=== PATIENT | female | born 1965 | race Caucasian/White ===

== ENCOUNTER 2018-12-28 14:04 | Inpatient (IN) ==
--- NOTE | 2018-12-28 15:56 | XR ---
EXAM DATE: 12/28/2018 3:49 PM EST AGE/SEX: 53 years / Female INDICATIONS: Dyspnea from abdominal distention. CLINICAL DATA: This is the patient's initial encounter. Patient reports that signs and symptoms have been present for 2 days and indicates a pain score of 10/10. MEDICAL/SURGICAL HISTORY: None. None. COMPARISON: [facility], CT ABDOMEN & PELVIS W CONTRAST, 12/17/2018. . FINDINGS: A single AP view of the chest demonstrates right basilar infiltrate. Heart normal in size. Retrocardi ac density The cardiomediastinal contours are unremarkable. Osseous structures are intact. CONCLUSION: 1. Right basilar atelectasis/infiltrate. 2. Retrocardiac density likely hiatal hernia. Electronically signed by: Tanner Bates MD Board Certified Radiologist 12/28/2018 3:54 PM EST
[2018-12-28 16:22] LABS: Baso # (Auto) 0.1 th/mm3 (0.0-0.2); Eos # (Auto) 0.1 th/mm3 (0.0-0.4); Eos % (Auto) 0.6 % (0.0-4.0); Hematocrit 28.9 % (35.0-46.0); Hemoglobin 9.8 gm/dL (11.6-15.3); Lymph # (Auto) 1.5 th/mm3 (1.0-4.8); Lymph % (Auto) 11.4 % (9.0-44.0); Mean Corpuscular Volume 108.8 fL (80.0-100.0); Mono % (Auto) 7.6 % (0.0-8.0); Neut # (Auto) 10.3 th/mm3 (1.8-7.7); Neut % (Auto) 79.4 % (16.0-70.0); Platelet Count 209 th/mm3 (150-450); Red Blood Count 2.65 mil/mm3 (4.00-5.30); Red Cell Distribution Width 13.7 % (11.6-17.2)
--- NOTE | 2018-12-28 16:24 | ED ---
HPI General Chief complaint: Recheck/Abnormal Lab/Rx Stated complaint: leg/abd complaint Time Seen by Provider: 12/28/18 15:11 Source: patient Mode of arrival: ambulatory Limitations: no limitations History of Present Illness HPI narrative: Patient is a 53-year-old female, past medical history significant for alcohol abuse and liver disease, admitted to the hospital earlier this month and discharged approximately 2-3 weeks ago. She states that since then she has had approximately a 30 pound weight gain with increasing abdominal distention and bilateral lower extremity edema. She states that her abdomen and legs have become so distended that they are causing her pain and she is constantly itching them. She has also had a cough and shortness of breath when she lies flat. No chest pain. No fever nor chills. She went to her primary care doctor's (Dr Bowman) office where she was seen by a nurse practitioner and sent to the emergency department. Onset (ago): day(s) Location: abdomen and lower extremity Radiation: non-radiation Severity: moderate Quality: aching Pain Consistency: constant Relieving factors: none Exacerbating factors: none Associated symptoms: Reports shortness of breath Treatments prior to arrival: Reports none Related Data Home Medications Medication Instructions Recorded Confirmed omeprazole magnesium [Prilosec OTC] 20 mg PO DAILY 12/17/18 12/28/18 Previous Rx's Medication Instructions Recorded folic acid 1 mg PO DAILY 15 Days #15 tab 12/21/18 melatonin 5 mg PO HS PRN #30 tab 12/21/18 thiamine HCl (vitamin B1) 100 mg PO BID 15 Days #30 tab 12/21/18 Allergies Allergy/AdvReac Type Severity Reaction Status Date / Time Opioids - Morphine Analogues AdvReac Vomiting Verified 12/17/18 09:29 Review of Systems ROS: all other systems reviewed are negative [facility] Medical History Medical History Alcohol abuse (Acute) Jaundice (Acute) Surgical History Surgical History Hx of cholecystectomy (Acute) Hx of hand surgery (Acute) Family History Family History Other Osteoarthritis Social History Social History Substance History: No History of Abuse Second Hand Smoke Exposure: No Smoking Status: Never smoker How Often Do You Have a Drink Containing Alcohol: 4 or more times a week Immunization History Tetanus Immunization: Unsure Exam Narrative Exam Narrative: GENERAL: Chronically ill-appearing female in no acute respiratory distress SKIN: Focused skin assessment warm/dry. HEAD: Atraumatic. Normocephalic. EYES: Pupils equal and round. Jaundiced. No injection or drainage. ENT: No nasal bleeding or discharge. Mucous membranes pink and moist. NECK: Trachea midline. No JVD. CARDIOVASCULAR: Regular rate and rhythm. No murmur appreciated. Intact and equal peripheral pulses. RESPIRATORY: No accessory muscle use. Clear to auscultation. Breath sounds equal bilaterally. GASTROINTESTINAL: Abdomen soft, non-tender. Distended abdomen. Hepatic and splenic margins not palpable. MUSCULOSKELETAL: No obvious deformities. No clubbing. No cyanosis. 3+ bilateral lower extremity pitting edema. NEUROLOGICAL: Awake and alert. No obvious cranial nerve deficits. Motor grossly within normal limits. Normal speech. PSYCHIATRIC: Appropriate mood and affect; insight and judgment normal. Course Initial Documented Vital Signs Temperature 98.4 F 12/28/18 14:06 Pulse Rate 106 H 12/28/18 14:06 Respiratory Rate 28 H 12/28/18 14:06 Blood Pressure 119/84 12/28/18 14:06 Pulse Oximetry 98 12/28/18 14:06 Last Documented Vital Signs Temperature 98.4 F 12/28/18 14:06 Pulse Rate 96 H 12/28/18 17:00 Respiratory Rate 16 12/28/18 17:00 Blood Pressure 103/76 12/28/18 17:00 Pulse Oximetry 97 12/28/18 17:49 Medical Decision Making [facility] Narrative Medical decision making narrative: Patient is a 53-year-old female who presents with complaint of abdominal distention and bilateral lower extremity edema in addition to a cough. She is afebrile and hemodynamically stable. White blood cell count is slightly elevated and chest x-ray does show right lower lobe pneumonia as she was hospitalized in the last 3 months this is concerning for hospital associated infection. She has been given vancomycin, Zosyn, azithromycin to cover this after blood cultures were drawn. Labs otherwise reveal hyponatremia with a sodium of 119. 1 week ago her sodium was at 130. Her mental status is normal however. She has been admitted to Dr. yost, her primary care doctor, for further evaluation and management. Medical Screen Exam Complete: Yes Emergency Medical Condition: Yes Differential Diagnosis Differential Diagnosis: Differential diagnosis includes but is not limited to fluid overload, hepatorenal syndrome, heart failure. Medical Records Medical records reviewed: Yes I reviewed the patient's medical records. Lab Data Lab results reviewed: Yes I reviewed the patient's lab results. Result diagrams: 12/28/18 16:00 12/28/18 16:00 Lab Results 12/28/18 12/28/18 12/28/18 Range/Units 16:00 16:00 16:00 WBC 13.0 H (4.0-11.0) th/mm3 RBC 2.65 L (4.00-5.30) mil/mm3 Hgb 9.8 L (11.6-15.3) gm/dL Hct 28.9 L (35.0-46.0) % MCV 108.8 H (80.0-100.0) fL MCH 37.0 H (27.0-34.0) pg MCHC 34.0 (32.0-36.0) % RDW 13.7 (11.6-17.2) % Plt Count 209 D (150-450) th/mm3 MPV 7.0 (7.0-11.0) fL Neut % (Auto) 79.4 H (16.0-70.0) % Lymph % (Auto) 11.4 (9.0-44.0) % Pettis % (Auto) 7.6 (0.0-8.0) % Eos % (Auto) 0.6 (0.0-4.0) % Baso % (Auto) 1.0 (0.0-2.0) % Neut # (Auto) 10.3 H (1.8-7.7) th/mm3 Lymph # (Auto) 1.5 (1.0-4.8) th/mm3 Pettis # (Auto) 1.0 H (0.0-0.9) th/mm3 Eos # (Auto) 0.1 (0.0-0.4) th/mm3 Baso # (Auto) 0.1 (0.0-0.2) th/mm3 WBC Differential . Differential Comment Auto diff final PT 18.1 H (9.8-11.6) sec INR 1.8 Ratio Sodium 119 L* (136-145) meq/L Potassium 3.8 (3.5-5.1) meq/L Chloride 88 L (98-107) meq/L Carbon Dioxide 20.1 L (21.0-32.0) meq/L Anion Gap 11 (5-15) meq/L BUN 5 L (7-18) mg/dL Creatinine 0.59 (0.50-1.00) mg/dL Estimated GFR Greater than 89 (>89) mL/min Random Glucose 85 (74-106) mg/dL Calcium 7.9 L (8.5-10.1) mg/dL Total Bilirubin 10.5 H (0.2-1.0) mg/dL AST 114 H (15-37) U/L ALT 14 (10-53) U/L Alkaline Phosphatase 210 H (45-117) U/L Troponin I Less than 0.02 L (0.02-0.05) ng/mL B-Natriuretic Peptide (0-100) pg/mL Total Protein 7.7 (6.4-8.2) g/dL Albumin 1.9 L (3.4-5.0) g/dL 12/28/18 Range/Units 16:00 WBC (4.0-11.0) th/mm3 RBC (4.00-5.30) mil/mm3 Hgb (11.6-15.3) gm/dL Hct (35.0-46.0) % MCV (80.0-100.0) fL MCH (27.0-34.0) pg MCHC (32.0-36.0) % RDW (11.6-17.2) % Plt Count (150-450) th/mm3 MPV (7.0-11.0) fL Neut % (Auto) (16.0-70.0) % Lymph % (Auto) (9.0-44.0) % Pettis % (Auto) (0.0-8.0) % Eos % (Auto) (0.0-4.0) % Baso % (Auto) (0.0-2.0) % Neut # (Auto) (1.8-7.7) th/mm3 Lymph # (Auto) (1.0-4.8) th/mm3 Pettis # (Auto) (0.0-0.9) th/mm3 Eos # (Auto) (0.0-0.4) th/mm3 Baso # (Auto) (0.0-0.2) th/mm3 WBC Differential Differential Comment PT (9.8-11.6) sec INR Ratio Sodium (136-145) meq/L Potassium (3.5-5.1) meq/L Chloride (98-107) meq/L Carbon Dioxide (21.0-32.0) meq/L Anion Gap (5-15) meq/L BUN (7-18) mg/dL Creatinine (0.50-1.00) mg/dL Estimated GFR (>89) mL/min Random Glucose (74-106) mg/dL Calcium (8.5-10.1) mg/dL Total Bilirubin (0.2-1.0) mg/dL AST (15-37) U/L ALT (10-53) U/L Alkaline Phosphatase (45-117) U/L Troponin I (0.02-0.05) ng/mL B-Natriuretic Peptide 40 (0-100) pg/mL Total Protein (6.4-8.2) g/dL Albumin (3.4-5.0) g/dL Imaging Data Attestation: I personally reviewed and interpreted this imaging study as follows : Radiologist's impression: Chest X-Ray 12/28/18 15:24 CONCLUSION: 1. Right basilar atelectasis/infiltrate. 2. Retrocardiac density likely hiatal hernia. ECG Data EKG Prior to Arrival: No Attestation: I personally reviewed and interpreted this ECG as follows: (Sinus rhythm at a rate of 96 bpm. There is T wave inversion in lead III but no other ST or T wave changes.) Discharge Plan Discharge Disposition Patient Disposition: ED Admit(ED Internal Use Only) Discharge Condition Condition: Stable Discharge Order Discharge Orders: ED Use Only Admit Order (Routine); Ordered 12/28/18 Ordered By: Parris Keller Discharge Details Diagnosis: Hospital-acquired pneumonia, Acute hyponatremia Physicians Team ED Provider: Parris Keller Primary Care Provider: Pj Bowman Attending Provider: Pj Bowman Discharge Interventions Interventions: Vital Signs Last Done: 12/28/18 17:00 Status ED Status: Admitted Patient
[2018-12-28 16:27] LABS: INR 1.8 Ratio; Prothrombin Time 18.1 sec (9.8-11.6)
[2018-12-28] MEDS ORDERED: Azithromycin Inj 500 MG in Sodium Chlor 0.9% Inj 250 ML IV.SIG ONE (16:40)
[2018-12-28] MEDS ORDERED: Vancomycin Inj 1,500 MG in Sodium Chlor 0.9% Inj 500 ML IV.SIG ONE (16:40)
[2018-12-28] MEDS ORDERED: Piperacil/Tazo 4.5 GM Premix 4.5 GM/100 ML BAG IV.SIG SCH (16:45)
[2018-12-28 17:34] LABS: Alanine Aminotransferase 14 U/L (10-53); Albumin 1.9 g/dL (3.4-5.0); Alkaline Phosphatase 210 U/L (45-117); Anion Gap 11 meq/L (5-15); Aspartate Aminotransferase 114 U/L (15-37); Blood Urea Nitrogen 5 mg/dL (7-18); Calcium 7.9 mg/dL (8.5-10.1); Carbon Dioxide 20.1 meq/L (21.0-32.0); Chloride 88 meq/L (98-107); Glomerular Filtration Rate Greater Than 89 mL/min (>89); Glucose,Random 85 mg/dL (74-106); Potassium 3.8 meq/L (3.5-5.1); Total Protein 7.7 g/dL (6.4-8.2)
[2018-12-28 17:38] LABS: Sodium 119 meq/L (136-145)
[2018-12-28] MEDS ORDERED: Acetaminophen 325 MG Tablet PO PRN (20:07)
--- NOTE | 2018-12-28 21:12 | ECG ---
Date Performed: 12/28/2018 Time Performed: 16:13:48 PTAGE: 53 years EKG: Sinus rhythm NORMAL ECG NO PREVIOUS TRACING DOCTOR: Alfred Cuenca Interpretating Date/Time 12/28/2018 21:11:45
[2018-12-29 07:44] LABS: Baso # (Auto) 0.1 th/mm3 (0.0-0.2); Baso % (Auto) 1.2 % (0.0-2.0); Eos # (Auto) 0.2 th/mm3 (0.0-0.4); Eos % (Auto) 1.2 % (0.0-4.0); Hematocrit 27.9 % (35.0-46.0); Hemoglobin 9.7 gm/dL (11.6-15.3); Lymph # (Auto) 1.1 th/mm3 (1.0-4.8); Lymph % (Auto) 8.8 % (9.0-44.0); Mean Corpuscular HGB Conc 34.9 % (32.0-36.0); Mean Corpuscular Hemoglobin 37.5 pg (27.0-34.0); Mean Corpuscular Volume 107.6 fL (80.0-100.0); Mean Platelet Volume 7.1 fL (7.0-11.0); Mono # (Auto) 0.7 th/mm3 (0.0-0.9); Mono % (Auto) 5.8 % (0.0-8.0); Neut # (Auto) 10.4 th/mm3 (1.8-7.7); Platelet Count 213 th/mm3 (150-450); Red Cell Distribution Width 13.5 % (11.6-17.2); White Blood Count 12.6 th/mm3 (4.0-11.0)
[2018-12-29 08:00] LABS: Anion Gap 11 meq/L (5-15); Blood Urea Nitrogen 5 mg/dL (7-18); Calcium 7.8 mg/dL (8.5-10.1); Carbon Dioxide 19.4 meq/L (21.0-32.0); Chloride 92 meq/L (98-107); Glomerular Filtration Rate Greater Than 89 mL/min (>89); Glucose,Random 85 mg/dL (74-106); Potassium 3.5 meq/L (3.5-5.1)
[2018-12-29 08:07] LABS: Sodium 122 meq/L (136-145)
[2018-12-29] MEDS: Pantoprazole Sodium 20 MG DR Tablet PO SCH (09:21)
[2018-12-29] MEDS: Folic Acid 1 MG Tablet PO SCH (09:21)
--- NOTE | 2018-12-29 12:34 | MB ---
cc: Isai Page MD, Gerald R DO DATE: 12/29/2018 REQUESTING PHYSICIAN: Dr. Pj Bowman. REASON FOR CONSULTATION: Recent pneumonia. HISTORY OF PRESENT ILLNESS: Ms. Cage is a 53-year-old white female, who was recently discharged from this hospital. She tells me that she was diagnosed with cirrhosis related to the alcohol. The patient also had hyponatremia, which improved. The patient states that she has gained 20 pounds of weight since her discharge from the hospital about 10 days ago. She went to see Dr. Bowman, and was sent to the emergency room. She complains of increasing swelling in the belly, swelling in her legs. Sodium 122, potassium 3.5, chloride 92, CO2 of 19.4, BUN 5, creatinine 0.61. Chest x-ray showed she has a right basal atelectasis versus infiltrate, and has a retrocardiac shadow, likely hiatal hernia. PAST MEDICAL HISTORY: Significant for history of recently diagnosed hepatitis/cirrhosis. MEDICATIONS: She is currently taking albuterol and Atrovent nebulizer treatment, folic acid 1 mg a day, melatonin 5, Protonix 20 mg a day, thiamine 100 mg a day. ALLERGIES: SHE IS ALLERGIC TO MORPHINE. SOCIAL HISTORY: She worked as a nurse reviewer. Has no history of smoking, used to drink beer, which she quit. No drug abuse. She is , lives alone. No children. REVIEW OF SYSTEMS: She has gained 20 pounds of weight. Has mild shortness of breath and swelling in the legs. No DVT or pulmonary embolism. No bleeding from any site. PHYSICAL EXAMINATION: GENERAL: A moderate, well-nourished female, not in any acute distress. VITAL SIGNS: Blood pressure 101/60, heart rate 97, respirations 19, temperature 97.8. HEENT: Pupils are equal and reactive to light. She has icterus. NECK: Supple. JVD not raised. CHEST: She has good respiratory sounds bilaterally. No rales or rhonchi. CARDIOVASCULAR: S1, S2 normal. ABDOMEN: Distended, nontender. Bowel sounds are present. EXTREMITIES: 2+ pedal edema. IMPRESSION: 1. Anasarca. 2. Ascites. 3. Mild atelectasis. 4. Possible hepatitis/cirrhosis. 5. Hyponatremia. PLAN: I discussed with the patient. She does not have any signs or symptoms of pneumonia. No need for antibiotics. Encourage her to use incentive spirometry. She will need diuresis, GI evaluation, and possible paracentesis. She is stable on room air. Further treatment plan will depend on hospital course. Thank you, Dr. Bowman, for this consultation. Isai Page MD ADA/rh , 11:58 AM , 12:08 PM
--- NOTE | 2018-12-29 14:11 | P.HPIM ---
History of Present Illness Primary Care Physician: Pj Bowman DO History of Present Illness: This patient is a 53 y/o Female with an extensive hx of etoh abuse. She was recently diagnosed with alcoholic cirrhosis and treated for hypernatremia likely 2/2 fluid overload and then discharged with a na level of around 130. Patient followed up with Dr. Bowman who evaluated the patient in his clinic and sent her to the ER because of b/l lower ext edema and worsening abdominal distention. She says that she feels approximately 20lbs heavier than her last admission and was feeling uncomfortable. She denies any fevers or chills. She admits to abdominal discomfort but denies any pain or tenderness to palpation. In the ER her Na level was low around 119. Her last alcoholic drink was approximately two weeks ago. PMH ETOH cirrhosis Surg Hx Cholecystectomy Social Hx extensive etoh abuse hx, denies hx of tobacco or drug use. Fam Hx breast cancer in her aunt. Inpatient Certification Inpatient Certification: I certify that the inpatient services were ordered in accordance with Medicare regulations governing the order. This includes certification that hospital inpatient services are reasonable and necessary and in the case of services not specified as inpatient-only under 42 CFR 419.22(n), that they are appropriately provided as inpatient services in accordance to with the 2-midnight benchmark under 43 CFR 412.3(e) Estimated Total Length of Stay (Days): 5 Plans for Post Hospital Care: SNF Review of Systems Review of Systems: all other systems reviewed are negative [facility] Medical History Medical History Alcohol abuse (Acute) Jaundice (Acute) Surgical History Surgical History Hx of cholecystectomy (Acute) Hx of hand surgery (Acute) Family History Family History Other Osteoarthritis Social History Social History Substance History: No History of Abuse Second Hand Smoke Exposure: No Smoking Status: Never smoker How Often Do You Have a Drink Containing Alcohol: 4 or more times a week Immunization History Tetanus Immunization: Unsure Medications and Allergies Allergies Allergy/AdvReac Type Severity Reaction Status Date / Time Opioids - Morphine Analogues AdvReac Vomiting Verified 12/17/18 09:29 Home Medications Medication Instructions Recorded Confirmed Type omeprazole magnesium [Prilosec OTC] 20 mg PO DAILY 12/17/18 12/28/18 History Active Medications: Active Medications Acetaminophen (Tylenol) 650 mg PO Q4H PRN PRN Reason: Temp > 100.4 Albuterol (Duoneb Neb (Edith)) 1 ampul NEB QID NEB [facility] Last Admin: 12/29/18 12:04 Dose: 1 ampul Folic Acid (Folic Acid) 1 mg PO DAILY [facility] Last Admin: 12/29/18 09:21 Dose: 1 mg Melatonin (Melatonin) 5 mg PO HS PRN PRN Reason: Insomnia Pantoprazole Sodium (Protonix) 20 mg PO DAILY [facility] [place] Last Admin: 12/29/18 09:21 Dose: 20 mg Thiamine HCl (Vitamin B1) 100 mg PO BID [facility] [place] Last Admin: 12/29/18 09:21 Dose: 100 mg Physical Exam Vital signs: Vital Signs 12/28/18 14:06 12/28/18 15:13 12/28/18 15:24 Temperature 98.4 F Pulse Rate 106 H 95 H 70 Respiratory Rate 28 H 16 Blood Pressure 119/84 107/73 Pulse Oximetry 98 100 97 12/28/18 16:00 12/28/18 17:00 12/28/18 17:40 Temperature Pulse Rate 100 H 96 H Respiratory Rate 17 16 Blood Pressure 103/76 103/76 Pulse Oximetry 96 98 97 12/28/18 17:49 12/28/18 19:10 12/28/18 19:12 Temperature Pulse Rate 94 H Respiratory Rate Blood Pressure 104/75 Pulse Oximetry 97 97 97 12/28/18 20:01 12/28/18 21:21 12/28/18 21:37 Temperature 97.9 F Pulse Rate 68 93 H Respiratory Rate 16 20 Blood Pressure 102/65 95/68 L Pulse Oximetry 96 98 97 12/29/18 00:26 12/29/18 00:32 12/29/18 04:00 Temperature 98.3 F 98.1 F Pulse Rate 96 H 95 H 99 H Respiratory Rate 16 20 20 Blood Pressure 100/55 L 112/59 L Pulse Oximetry 98 97 95 12/29/18 08:00 12/29/18 08:40 12/29/18 12:00 Temperature 97.8 F 98.2 F Pulse Rate 97 H 101 H 101 H Respiratory Rate 19 18 18 Blood Pressure 101/67 100/60 Pulse Oximetry 96 97 12/29/18 12:04 Temperature Pulse Rate 99 H Respiratory Rate 18 Blood Pressure Pulse Oximetry Intake & Output 12/28/18 12/29/18 12/29/18 18:59 06:59 18:59 Intake Total 100 / 100 1066 / 1066 Balance 100 / 100 1066 / 1066 Weight 63.503 kg 64.8 kg Intake: IV 100 / 100 765 / 765 Azithromycin Inj 500 MG In NS 250 / 250 Inj 250 ML @ 250 mls/hr IV.SIG ONCE ONE Rx#:[id number] Zosyn 4.5 GM Premix 4.5 gm In 100 / 100 100 ml @ 200 mls/hr IV.SIG ONCE EDITH Rx#:[id number] Vancomycin Inj 1,500 MG In NS 515 / 515 Inj 500 ML @ 250 mls/hr IV.SIG ONCE ONE Rx#:[id number] Oral 301 / 301 Other: # Bowel Movements 2 Narrative: Patient appear jaundiced Alert and oriented x 3 Scleral icterus S1S2 CTA B/L Abd soft, mildly distended, no tenderness to palpation. Bowel sounds are present. 2-3+ pitting edema of b/l lower exts. Patient is ambulatory, no focal neuro deficits. Results Labs CBC & Chem 7: 12/29/18 06:30 12/29/18 06:30 Imaging Impressions Chest X-Ray 12/28/18 15:24 CONCLUSION: 1. Right basilar atelectasis/infiltrate. 2. Retrocardiac density likely hiatal hernia. Caprini VTE Risk Assessment Caprini VTE Risk Assessment: No/Low Risk (score <= 1) Caprini Risk Assessment Model: Point Value = 1 Point Value = 2 Point Value = 3 Point Value = 5 Age 41-60 Minor surgery BMI > 25 kg/m2 Swollen legs Varicose veins or History of unexplained or recurrent spontaneous Oral contraceptives or hormone replacement Sepsis (< 1 month) Serious lung disease, including pneumonia (< 1 month) Abnormal pulmonary function Acute myocardial infarction Congestive heart failure (< 1 month) History of inflammatory bowel disease Medical patient at bed rest Age 61-74 Arthroscopic surgery Major open surgery (> 45 min) Laparoscopic surgery (> 45 min) Malignancy Confined to bed (> 72 hours) Immobilizing plaster cast Central venous access Age >= 75 History of VTE Family history of VTE Factor V Leiden Prothrombin [id number] Lupus anticoagulant Anticardiolipin antibodies Elevated serum homocysteine Heparin-induced thrombocytopenia Other congenital or acquired thrombophilia Stroke (< 1 month) Elective arthroplasty Hip, pelvis, or leg fracture Acute spinal cord injury (< 1 month) Prophylaxis Regimen: Total Risk Factor Score Risk Level Prophylaxis Regimen 0-1 Low Early ambulation 2 Moderate Order ONE of the following: *Sequential Compression Device (SCD) *Heparin 5000 units SQ BID 3-4 Higher Order ONE of the following medications: *Heparin 5000 units SQ TID *Enoxaparin/Lovenox 40 mg SQ daily (WT < 150 kg, CrCl > 30 mL/min) *Enoxaparin/Lovenox 30 mg SQ daily (WT < 150 kg, CrCl > 10-29 mL/min) *Enoxaparin/Lovenox 30 mg SQ BID (WT < 150 kg, CrCl > 30 mL/min) AND/OR *Sequential Compression Device (SCD) 5 or more Highest Order ONE of the following medications: *Heparin 5000 units SQ TID (Preferred with Epidurals) *Enoxaparin/Lovenox 40 mg SQ daily (WT < 150 kg, CrCl > 30 mL/min) *Enoxaparin/Lovenox 30 mg SQ daily (WT < 150 kg, CrCl > 10-29 mL/min) *Enoxaparin/Lovenox 30 mg SQ BID (WT < 150 kg, CrCl > 30 mL/min) AND *Sequential Compression Device (SCD) Assessment and Plan Plan This patient is a 53 y/o Female with an extensive hx of etoh abuse. She was recently diagnosed with alcoholic cirrhosis and treated for hypernatremia likely 2/2 fluid overload and then discharged with a na level of around 130. Patient followed up with Dr. Bowman who evaluated the patient in his clinic and sent her to the ER because of b/l lower ext edema and worsening abdominal distention. She says that she feels approximately 20lbs heavier than her last admission and was feeling uncomfortable. She denies any fevers or chills. She admits to abdominal discomfort but denies any pain or tenderness to palpation. In the ER her Na level was low around 119. Her last alcoholic drink was approximately two weeks ago. 1. Acute hyponatremia likely 2/2 volume overload from ETOH cirrhosis Patient with a significant amount of edema of the lower exts and abd wall. I do not believe she needs an urgent paracentesis. We will start the patient on PO lasix. I will give a dose of IV lasix for today, and then continue the PO lasix tonight. I will be cautious with IV lasix to avoid hepato renal syndrome given her etoh cirrhosis hx. Strict ins/outs Follow up repeat Renal panel around 1700 and then tomorrow am. Na has improved form 119 to 122. We will monitor to not over correct her na level 2. Questionable infiltrate on CXR I do not believe the patient has a pna which was seen on cxr. No symptoms. Pulm note appreciated. Cont breathing txs as needed. No need to continue antibiotics. SCDs for DVT prophylaxis, encourage ambulation. Patient was ambulating on my examination.
[2018-12-29] MEDS: Furosemide 20 MG Tablet PO SCH (18:22)
[2018-12-29 18:29] LABS: Calcium 7.4 mg/dL (8.5-10.1); Carbon Dioxide 18.2 meq/L (21.0-32.0); Potassium 3.3 meq/L (3.5-5.1)
[2018-12-29 20:06] LABS: Albumin 1.8 g/dL (3.4-5.0); Calcium-Albumin Corrected 9.2 mg/dL (8.5-10.1)
[2018-12-29] MEDS: Melatonin 5 MG Tablet PO PRN (21:02)
[2018-12-30 08:41] LABS: Anion Gap 12 meq/L (5-15); Blood Urea Nitrogen 5 mg/dL (7-18); Calcium 7.7 mg/dL (8.5-10.1); Carbon Dioxide 20.5 meq/L (21.0-32.0); Chloride 96 meq/L (98-107); Glomerular Filtration Rate Greater Than 89 mL/min (>89); Glucose,Random 83 mg/dL (74-106); Potassium 3.6 meq/L (3.5-5.1); Sodium 128 meq/L (136-145)
--- NOTE | 2018-12-30 09:22 | P.PNIM ---
Subjective Interval history: Patient laying down in bed, starting to feel better. Edema improving. Physical Exam Vital signs: Vital Signs 12/29/18 12:00 12/29/18 12:04 12/29/18 15:52 Temperature 98.2 F Pulse Rate 101 H 99 H 109 H Respiratory Rate 18 18 18 Blood Pressure 100/60 Pulse Oximetry 97 12/29/18 16:00 12/29/18 18:21 12/29/18 20:00 Temperature 98.2 F 98.1 F Pulse Rate 112 H 101 H Respiratory Rate 19 17 Blood Pressure 110/79 103/63 99/61 L Pulse Oximetry 97 97 12/30/18 00:00 12/30/18 07:42 12/30/18 08:00 Temperature 97.6 F 98.5 F Pulse Rate 99 H 88 84 Respiratory Rate 17 16 16 Blood Pressure 101/65 88/54 L Pulse Oximetry 94 L 96 95 Intake & Output 12/29/18 12/30/18 12/30/18 18:59 06:59 18:59 Intake Total 480 / 480 Balance 480 / 480 Weight 64.1 kg Intake: Oral 480 / 480 Other: # Voids 3 Date of Last Bowel Movement 12/29/18 12/29/18 Narrative: Patient appear jaundiced Alert and oriented x 3 Scleral icterus S1S2 CTA B/L Abd soft, mildly distended, no tenderness to palpation. Bowel sounds are present. 2+ pitting edema of b/l lower exts. Improving. Patient is ambulatory, no focal neuro deficits. Results Labs CBC & Chem 7: 12/29/18 06:30 12/31/18 05:40 Labs: Microbiology 12/28/18 17:05 Blood - Peripheral Aerobic Blood Culture - Preliminary No growth in 1 day 12/28/18 17:05 Blood - Peripheral Anaerobic Blood Culture - Preliminary No growth in 1 day 12/28/18 16:50 Blood - Peripheral Aerobic Blood Culture - Preliminary No growth in 1 day 12/28/18 16:50 Blood - Peripheral Anaerobic Blood Culture - Preliminary No growth in 1 day Assessment and Plan Plan This patient is a 53 y/o Female with an extensive hx of etoh abuse. She was recently diagnosed with alcoholic cirrhosis and treated for hypernatremia likely 2/2 fluid overload and then discharged with a na level of around 130. Patient followed up with Dr. Bowman who evaluated the patient in his clinic and sent her to the ER because of b/l lower ext edema and worsening abdominal distention. She says that she feels approximately 20lbs heavier than her last admission and was feeling uncomfortable. She denies any fevers or chills. She admits to abdominal discomfort but denies any pain or tenderness to palpation. In the ER her Na level was low around 119. Her last alcoholic drink was approximately two weeks ago. 12/30/18 Patient's edema is improving with one dose of iv lasix yesterday and now on PO lasix. Continue to monitor Na levels closely to not over correct. Na 128 as of this morning. Follow up repeat Na level at 1700. Follow up am labs. I expect the patient to be discharged tomorrow if Na levels and edema continue to improve. She may need another dose of IV lasix later today. I will continue to follow her labs. Blood pressure currently in the low 90s, will monitor closely. 1. Acute hyponatremia likely 2/2 volume overload from ETOH cirrhosis Patient with a significant amount of edema of the lower exts and abd wall. I do not believe she needs an urgent paracentesis. We will start the patient on PO lasix. I will give a dose of IV lasix for today, and then continue the PO lasix tonight. I will be cautious with IV lasix to avoid hepato renal syndrome given her etoh cirrhosis hx. Strict ins/outs Follow up repeat Renal panel around 1700 and then tomorrow am. Na has improved form 119 to 122. We will monitor to not over correct her na level 2. Questionable infiltrate on CXR I do not believe the patient has a pna which was seen on cxr. No symptoms. Pulm note appreciated. Cont breathing txs as needed. No need to continue antibiotics. SCDs for DVT prophylaxis, encourage ambulation. Patient was ambulating on my examination.
[2018-12-30] MEDS: Pantoprazole Sodium 20 MG DR Tablet PO SCH (09:24)
[2018-12-30] MEDS: Furosemide 20 MG Tablet PO SCH ×2 (09:24→17:19)
[2018-12-30] MEDS: Folic Acid 1 MG Tablet PO SCH (09:24)
[2018-12-30 18:49] LABS: Calcium 7.9 mg/dL (8.5-10.1); Potassium 3.4 meq/L (3.5-5.1)
[2018-12-31 07:37] LABS: Anion Gap 11 meq/L (5-15); Blood Urea Nitrogen 5 mg/dL (7-18); Calcium 7.3 mg/dL (8.5-10.1); Carbon Dioxide 20.2 meq/L (21.0-32.0); Chloride 97 meq/L (98-107); Glomerular Filtration Rate Greater Than 89 mL/min (>89); Glucose,Random 95 mg/dL (74-106); Magnesium 1.3 mg/dL (1.5-2.5); Potassium 3.7 meq/L (3.5-5.1); Sodium 128 meq/L (136-145)
[2018-12-31 07:52] LABS: Albumin 1.7 g/dL (3.4-5.0); Calcium-Albumin Corrected 9.1 mg/dL (8.5-10.1)
[2018-12-31] MEDS: Pantoprazole Sodium 20 MG DR Tablet PO SCH (09:16)
[2018-12-31] MEDS: Furosemide 20 MG Tablet PO SCH ×2 (09:16→17:27)
[2018-12-31] MEDS: Folic Acid 1 MG Tablet PO SCH (09:16)
--- NOTE | 2018-12-31 15:17 | P.PNIM ---
Subjective Interval history: Patient laying down in bed. Patient still complains of lower ext heaviness but says it is getting better. Abd feels full. Physical Exam Vital signs: Vital Signs 12/30/18 15:53 12/30/18 16:00 12/30/18 20:00 Temperature 98.1 F 97.9 F Pulse Rate 112 H 108 H 106 H Respiratory Rate 18 17 20 Blood Pressure 97/68 L 100/65 Pulse Oximetry 96 95 12/30/18 20:03 12/31/18 00:00 12/31/18 07:41 Temperature 97.5 F L Pulse Rate 74 102 H 92 H Respiratory Rate 16 19 16 Blood Pressure 95/56 L Pulse Oximetry 94 L 95 12/31/18 08:00 12/31/18 11:55 12/31/18 12:03 Temperature 98.2 F 97.8 F Pulse Rate 88 101 H 110 H Respiratory Rate 16 16 18 Blood Pressure 99/59 L 110/79 Pulse Oximetry 95 96 12/31/18 15:05 Temperature Pulse Rate 114 H Respiratory Rate 20 Blood Pressure Pulse Oximetry Intake & Output 12/30/18 12/31/18 12/31/18 18:59 06:59 18:59 Intake Total 1200 / 1200 0 / 0 Balance 1200 / 1200 0 / 0 Weight 63.9 kg Intake: Oral 1200 / 1200 0 / 0 Other: # Voids 3 3 Date of Last Bowel Movement 12/29/18 12/31/18 # Bowel Movements 3 1 Narrative: Patient appear jaundiced Alert and oriented x 3 Scleral icterus S1S2 CTA B/L Abd soft, mildly distended, no tenderness to palpation. Bowel sounds are present. 2+ pitting edema of b/l lower exts. Improving. Patient is ambulatory, no focal neuro deficits. Results Labs CBC & Chem 7: 12/29/18 06:30 12/31/18 05:40 Labs: Microbiology 12/28/18 17:05 Blood - Peripheral Aerobic Blood Culture - Preliminary No growth in 3 days 12/28/18 17:05 Blood - Peripheral Anaerobic Blood Culture - Preliminary No growth in 3 days 12/28/18 16:50 Blood - Peripheral Aerobic Blood Culture - Preliminary No growth in 3 days 12/28/18 16:50 Blood - Peripheral Anaerobic Blood Culture - Preliminary No growth in 3 days Assessment and Plan Plan This patient is a 53 y/o Female with an extensive hx of etoh abuse. She was recently diagnosed with alcoholic cirrhosis and treated for hypernatremia likely 2/2 fluid overload and then discharged with a na level of around 130. Patient followed up with Dr. Bowman who evaluated the patient in his clinic and sent her to the ER because of b/l lower ext edema and worsening abdominal distention. She says that she feels approximately 20lbs heavier than her last admission and was feeling uncomfortable. She denies any fevers or chills. She admits to abdominal discomfort but denies any pain or tenderness to palpation. In the ER her Na level was low around 119. Her last alcoholic drink was approximately two weeks ago. 12/31/18 Patient still has a significant amount of pitting edema of the lower exts. Given another dose of IV lasix today, Na still low at 128. Repeating bmp today this afternoon. Will follow up the labs. Continue Po lasix Once the serum Na improves patient will be discharged. Abd u/s ordered, will follow up. Patient does have abd ascites, will continue to monitor. No shortness of breath. I necessary we will perform a paracentesis tomorrow. Discharge planning: I expect the patient to be discharged in the next 24 hrs. Patient is ambulatory, no pharmacotherapy for dvt prophylaxis. 1. Acute hyponatremia likely 2/2 volume overload from ETOH cirrhosis Patient with a significant amount of edema of the lower exts and abd wall. I do not believe she needs an urgent paracentesis. We will start the patient on PO lasix. I will give a dose of IV lasix for today, and then continue the PO lasix tonight. I will be cautious with IV lasix to avoid hepato renal syndrome given her etoh cirrhosis hx. Strict ins/outs Follow up repeat Renal panel around 1700 and then tomorrow am. Na has improved form 119 to 122. We will monitor to not over correct her na level 2. Questionable infiltrate on CXR I do not believe the patient has a pna which was seen on cxr. No symptoms. Pulm note appreciated. Cont breathing txs as needed. No need to continue antibiotics. SCDs for DVT prophylaxis, encourage ambulation. Patient was ambulating on my examination.
[2018-12-31 16:14] LABS: Anion Gap 14 meq/L (5-15); Blood Urea Nitrogen 5 mg/dL (7-18); Calcium 7.8 mg/dL (8.5-10.1); Carbon Dioxide 19.1 meq/L (21.0-32.0); Chloride 96 meq/L (98-107); Glomerular Filtration Rate Greater Than 89 mL/min (>89); Glucose,Random 112 mg/dL (74-106); Potassium 3.1 meq/L (3.5-5.1); Sodium 129 meq/L (136-145)
--- NOTE | 2018-12-31 18:01 | US ---
EXAM DATE: 12/31/2018 5:56 PM EST AGE/SEX: 53 years / Female INDICATIONS: Ascites. CLINICAL DATA: This is the patient's initial encounter. Patient reports that signs and symptoms have been present for 1 month and indicates a pain score of 5/10. MEDICAL/SURGICAL HISTORY: . Alcohol abuse. Jaundice. Cholecystectomy. Hand surgery. COMPARISON: [facility], US ABDOMEN LIVER, 12/17/2018. . FINDINGS: Limited sonographic imaging of the abdomen was performed to evaluate for the presence of ascites. The re is a moderate amount of ascites in the upper and mid abdomen which measures up to 5 cm in thicknes s in the low midline abdomen. CONCLUSION: 1. Moderate amount of ascites is present. Electronically signed by: Bobby Navarro MD Board Certified Radiologist 12/31/2018 6:00 PM EST
[2019-01-01] MEDS: Pantoprazole Sodium 20 MG DR Tablet PO SCH (09:08)
[2019-01-01] MEDS: Folic Acid 1 MG Tablet PO SCH (09:08)
[2019-01-01] MEDS: Furosemide 20 MG Tablet PO SCH ×2 (09:08→17:50)
--- NOTE | 2019-01-01 09:08 | P.PNIM ---
Subjective Interval history: Patient complains of some abd discomfort from the distention. She says her lower ext swelling b/l has improved and can ambulate better. No other complaints. Physical Exam Vital signs: Vital Signs 12/31/18 11:55 12/31/18 12:03 12/31/18 15:05 Temperature 97.8 F Pulse Rate 101 H 110 H 114 H Respiratory Rate 16 18 20 Blood Pressure 110/79 Pulse Oximetry 96 12/31/18 15:56 12/31/18 20:00 12/31/18 20:05 Temperature 97.6 F 98.6 F Pulse Rate 111 H 108 H 100 H Respiratory Rate 20 18 20 Blood Pressure 134/64 113/58 L Pulse Oximetry 95 96 97 01/01/19 00:00 01/01/19 08:10 01/01/19 08:25 Temperature 98.1 F 97.8 F Pulse Rate 101 H 95 H 90 Respiratory Rate 17 18 16 Blood Pressure 101/69 95/71 L Pulse Oximetry 94 L 97 96 Intake & Output 12/31/18 01/01/19 01/01/19 18:59 06:59 18:59 Intake Total 0 / 0 Balance 0 / 0 Weight 63.9 kg Intake: Oral 0 / 0 Other: # Voids 3 1 Date of Last Bowel Movement 12/31/18 # Bowel Movements 2 0 Narrative: Patient appear jaundiced Alert and oriented x 3 Scleral icterus S1S2 CTA B/L Abd soft, mildly distended, no tenderness to palpation. Bowel sounds are present. B/l lower ext edema has improved. Patient is ambulatory, no focal neuro deficits. Results Labs CBC & Chem 7: 12/29/18 06:30 12/31/18 15:24 Labs: Microbiology 12/28/18 17:05 Blood - Peripheral Aerobic Blood Culture - Preliminary No growth in 3 days 12/28/18 17:05 Blood - Peripheral Anaerobic Blood Culture - Preliminary No growth in 3 days 12/28/18 16:50 Blood - Peripheral Aerobic Blood Culture - Preliminary No growth in 3 days 12/28/18 16:50 Blood - Peripheral Anaerobic Blood Culture - Preliminary No growth in 3 days Imaging Imaging: Impressions Abdomen Ultrasound 12/31/18 00:00 CONCLUSION: 1. Moderate amount of ascites is present. Assessment and Plan Plan This patient is a 53 y/o Female with an extensive hx of etoh abuse. She was recently diagnosed with alcoholic cirrhosis and treated for hypernatremia likely 2/2 fluid overload and then discharged with a na level of around 130. Patient followed up with Dr. Bowman who evaluated the patient in his clinic and sent her to the ER because of b/l lower ext edema and worsening abdominal distention. She says that she feels approximately 20lbs heavier than her last admission and was feeling uncomfortable. She denies any fevers or chills. She admits to abdominal discomfort but denies any pain or tenderness to palpation. In the ER her Na level was low around 119. Her last alcoholic drink was approximately two weeks ago. 01/01/19 Patients b/l lower ext swelling has improved. She is requesting a paracentesis because she has abdominal discomfort. No pain on palpation of the abd. Na level is 129 this am, improving. Continue PO lasix. Patient will be started on IV albumin and I will place an order for a therapeutic and dx paracentesis. Follow up this mornings bmp. Possible discharge later today depending on paracentesis and Na level. 1. Acute hyponatremia likely 2/2 volume overload from ETOH cirrhosis Patient with a significant amount of edema of the lower exts and abd wall. I do not believe she needs an urgent paracentesis. We will start the patient on PO lasix. I will give a dose of IV lasix for today, and then continue the PO lasix tonight. I will be cautious with IV lasix to avoid hepato renal syndrome given her etoh cirrhosis hx. Strict ins/outs Follow up repeat Renal panel around 1700 and then tomorrow am. Na has improved form 119 to 122. We will monitor to not over correct her na level 2. Questionable infiltrate on CXR I do not believe the patient has a pna which was seen on cxr. No symptoms. Pulm note appreciated. Cont breathing txs as needed. No need to continue antibiotics. SCDs for DVT prophylaxis, encourage ambulation. Patient was ambulating on my examination.
[2019-01-01] MEDS: Albumin Human 25% Inj 100 ML IV.SIG SCH ×2 (09:49→22:01)
[2019-01-01] MEDS ORDERED: Magnesium Sulfate Inj 4 GM in Sodium Chlor 0.9% Inj 92 ML IV.SIG ONE (10:30)
[2019-01-01 12:42] LABS: Calcium 7.8 mg/dL (8.5-10.1); Carbon Dioxide 21.7 meq/L (21.0-32.0); Magnesium 1.4 mg/dL (1.5-2.5); Potassium 3.2 meq/L (3.5-5.1)
[2019-01-01 19:02] LABS: Total Protein,Peritoneal Fluid 0.9 gm/dL
[2019-01-01 20:09] LABS: Eosinophils,Peritoneal Fluid 1 %; Neutrophils,Peritoneal Fluid 19 %; RBC,Peritoneal Fluid 127 /mm3 (0-0)
--- NOTE | 2019-01-01 20:09 | P.PNPL ---
Subjective Interval history: 53 YOWF with Ascitis, anasarca Had paracentesis 4.5 L fluid removed has Cough no Sp Physical Exam Vital signs: Vital Signs 01/01/19 00:00 01/01/19 08:10 01/01/19 08:25 Temperature 98.1 F 97.8 F Pulse Rate 101 H 95 H 90 Respiratory Rate 17 18 16 Blood Pressure 101/69 95/71 L Pulse Oximetry 94 L 97 96 01/01/19 11:29 01/01/19 12:11 01/01/19 13:41 Temperature 97.9 F 98.4 F Pulse Rate 101 H 88 106 H Respiratory Rate 18 16 18 Blood Pressure 113/72 99/73 L Pulse Oximetry 96 94 L 01/01/19 16:41 01/01/19 16:52 01/01/19 17:24 Temperature 98.1 F 98.0 F 97.6 F Pulse Rate 101 H 102 H 103 H Respiratory Rate 20 18 18 Blood Pressure 92/62 L 87/60 L 103/64 Pulse Oximetry 93 L 93 L 94 L 01/01/19 19:56 Temperature Pulse Rate 100 H Respiratory Rate 18 Blood Pressure Pulse Oximetry 93 L Intake & Output 01/01/19 01/01/19 01/02/19 06:59 18:59 06:59 Intake Total 0 / 0 1100 / 1100 Balance 0 / 0 1100 / 1100 Weight 63.9 kg Intake: IV 100 / 100 Flexbumin 25% Inj 100 ML @ 60 100 / 100 mls/hr IV.SIG Q12H EDITH Rx#: [id number] Oral 0 / 0 1000 / 1000 Other: # Voids 1 5 Date of Last Bowel Movement 12/31/18 # Bowel Movements 0 GENERAL: MBMN NAD SKIN: Warm and dry. HEAD: Normocephalic. EYES: No scleral icterus. No injection or drainage. NECK: Supple, trachea midline. No JVD or lymphadenopathy. CARDIOVASCULAR: Regular rate and rhythm without murmurs, gallops, or rubs. RESPIRATORY: Breath sounds equal bilaterally. No accessory muscle use. GASTROINTESTINAL: Abdomen soft, non-tender, nondistended. MUSCULOSKELETAL: No cyanosis, or edema. BACK: Nontender without obvious deformity. No CVA tenderness. Assessment and Plan - Plan IMPRESSION: 1. Anasarca. 2. Ascites. 3. Mild atelectasis. 4. Possible hepatitis/cirrhosis. 5. Hyponatremia. PLAN: Diurease with Lasix IV Albumin monitor lytes Stable on RA
--- NOTE | 2019-01-02 06:58 | US ---
EXAM DATE: 01/01/2019 4:57 PM EST AGE/SEX: 53 years / Female INDICATIONS: Ascites. CLINICAL DATA: This is the patient's initial encounter. Patient reports that signs and symptoms have been present for 1 month and indicates a pain score of 3/10. MEDICAL/SURGICAL HISTORY: . Alcohol abuse. Jaundice. . Cholecystectomy. Hand surgery. COMPARISON: [facility] [place] ABDOMEN LOWER LIMITED, 12/31/2018. . FLUID: Total volume of 4400 cc of cloudy, yellow Peritoneal fluid was removed. Fluid was sent to lab for or dered studies. . . TECHNIQUE: Ultrasound guidance for abdominal paracentesis. Paracentesis. The risks, benefits, and alternatives to ultrasound guided paracentesis were explained to the patient in detail including the risk of bleeding and infection. Written and verbal informed consent was obt ained. With the patient on the ultrasound table, ultrasound imaging was used to select the most appropriate approach for paracentesis. Overlying skin was prepped and draped in the usual sterile fashion and wi th a local anesthetic, a dermatotomy was made with an 11 blade scalpel. A 6 [employer] Lpt-[id number] ca theter was introduced into the peritoneal cavity and fluid was collected. Post procedure scanning reveals no hematoma or other complication. The patient tolerated the procedu re well and left the ultrasound suite in stable condition. FINDINGS: Adequate fluid for paracentesis. CONCLUSION: 1. Uncomplicated paracentesis. Electronically signed by: Omi Oconnor MD Board Certified Radiologist 01/02/2019 6:57 AM EST
[2019-01-02] MEDS: Furosemide 20 MG Tablet PO SCH ×3 (08:24→18:22)
[2019-01-02 08:44] LABS: Anion Gap 10 meq/L (5-15); Blood Urea Nitrogen 4 mg/dL (7-18); Calcium 7.4 mg/dL (8.5-10.1); Carbon Dioxide 22.2 meq/L (21.0-32.0); Chloride 97 meq/L (98-107); Glomerular Filtration Rate Greater Than 89 mL/min (>89); Glucose,Random 95 mg/dL (74-106); Magnesium 2.2 mg/dL (1.5-2.5); Potassium 3.3 meq/L (3.5-5.1); Sodium 129 meq/L (136-145)
[2019-01-02 08:52] LABS: Albumin 1.9 g/dL (3.4-5.0); Calcium-Albumin Corrected 9.1 mg/dL (8.5-10.1)
[2019-01-02] MEDS: Pantoprazole Sodium 20 MG DR Tablet PO SCH (08:59)
[2019-01-02] MEDS: Folic Acid 1 MG Tablet PO SCH (09:00)
[2019-01-02 10:21] LABS: Albumin 1.9 g/dL (3.4-5.0)
[2019-01-02 10:24] LABS: Total Protein 6.5 g/dL (6.4-8.2)
[2019-01-02] MEDS: Albumin Human 25% Inj 100 ML IV.SIG SCH ×2 (11:02→21:34)
--- NOTE | 2019-01-02 12:42 | P.PNFP ---
Subjective Interval history: Delayed entry seen this am Up in chair, had paracentesis last evening She voices she is breathing better Pleased with diuresis Denies CP, still sob on exertion. Results - Labs Result diagrams: 12/29/18 06:30 01/02/19 06:50 Abnormal lab results 01/01/19 01/01/19 01/02/19 Range/Units 11:43 15:25 06:50 Sodium 128 L 129 L (136-145) meq/L Potassium 3.2 L 3.3 L (3.5-5.1) meq/L Chloride 96 L 97 L (98-107) meq/L BUN 5 L 4 L (7-18) mg/dL Estimated GFR 85 L (>89) mL/min Calcium 7.8 L 7.4 L* (8.5-10.1) mg/dL Magnesium 1.4 L (1.5-2.5) mg/dL Total Bilirubin (0.2-1.0) mg/dL Direct Bilirubin (0.0-0.2) mg/dL Indirect Bilirubin (0.0-0.8) mg/dL AST (15-37) U/L ALT (10-53) U/L Alkaline Phosphatase (45-117) U/L Albumin 1.9 L (3.4-5.0) g/dL Peritoneal RBC 127 H (0-0) /mm3 Periton Nuc Cells 64 H (0-10) /mm3 01/02/19 Range/Units 06:50 Sodium (136-145) meq/L Potassium (3.5-5.1) meq/L Chloride (98-107) meq/L BUN (7-18) mg/dL Estimated GFR (>89) mL/min Calcium (8.5-10.1) mg/dL Magnesium (1.5-2.5) mg/dL Total Bilirubin 7.3 H (0.2-1.0) mg/dL Direct Bilirubin 5.1 H (0.0-0.2) mg/dL Indirect Bilirubin 2.2 H (0.0-0.8) mg/dL AST 102 H (15-37) U/L ALT 8 L (10-53) U/L Alkaline Phosphatase 174 H (45-117) U/L Albumin 1.9 L (3.4-5.0) g/dL Peritoneal RBC (0-0) /mm3 Periton Nuc Cells (0-10) /mm3 BMP 01/01/19 01/02/19 11:43 06:50 Sodium 128 L 129 L Potassium 3.2 L 3.3 L Chloride 96 L 97 L Carbon Dioxide 21.7 22.2 BUN 5 L 4 L Creatinine 0.71 0.58 Calcium 7.8 L 7.4 L* Liver Function 01/02/19 01/02/19 Range/Units 06:50 06:50 Total Bilirubin 7.3 H (0.2-1.0) mg/dL Direct Bilirubin 5.1 H (0.0-0.2) mg/dL AST 102 H (15-37) U/L ALT 8 L (10-53) U/L Alkaline Phosphatase 174 H (45-117) U/L Albumin 1.9 L 1.9 L (3.4-5.0) g/dL - Imaging Impressions Paracentesis Ultrasound 01/01/19 00:00 CONCLUSION: 1. Uncomplicated paracentesis. Physical Exam Vital signs: Vital Signs 01/01/19 13:41 01/01/19 16:41 01/01/19 16:52 Temperature 98.4 F 98.1 F 98.0 F Pulse Rate 106 H 101 H 102 H Respiratory Rate 18 20 18 Blood Pressure 99/73 L 92/62 L 87/60 L Pulse Oximetry 94 L 93 L 93 L 01/01/19 17:24 01/01/19 19:56 01/01/19 20:00 Temperature 97.6 F 98.0 F Pulse Rate 103 H 100 H 108 H Respiratory Rate 18 18 22 Blood Pressure 103/64 92/56 L Pulse Oximetry 94 L 93 L 94 L 01/02/19 00:00 01/02/19 04:00 01/02/19 07:39 Temperature 98.9 F 99.7 F H Pulse Rate 103 H 102 H 93 H Respiratory Rate 20 20 18 Blood Pressure 89/54 L 91/59 L Pulse Oximetry 97 93 L 01/02/19 07:40 01/02/19 08:21 Temperature 99.0 F Pulse Rate 102 H Respiratory Rate 17 Blood Pressure 97/65 L Pulse Oximetry 98 95 Intake & Output 01/01/19 01/02/19 01/02/19 18:59 06:59 18:59 Intake Total 1100 / 1100 100 / 100 Balance 1100 / 1100 100 / 100 Weight 62 kg Intake: IV 100 / 100 100 / 100 Flexbumin 25% Inj 100 ML @ 60 100 / 100 mls/hr IV.SIG Q12H EDITH Rx#: [id number] Magnesium Sulfate Inj 4 GM In 100 / 100 NS Inj 92 ML @ 25 mls/hr IV.SIG ONCE ONE Rx#:[id number] Oral 1000 / 1000 Other: # Voids 5 3 Date of Last Bowel Movement 12/31/18 12/31/18 - Constitutional no acute distress, cooperative - Routine HEENT Exam Head: Present: normocephalic Eye: Present: PERRL ENT: Present: mucous membranes moist - Routine Neck Exam Present: supple - Routine Respiratory Exam Present: CTA bilaterally - Routine Cardiovascular Exam Present: S1, S2 - Routine Abdominal Exam Present: soft, normoactive bowel sounds, distended - Routine Extremities Exam Present: edema, pulses intact - Routine Skin Exam Present: dry, warm - Routine Neurological Exam Present: alert, oriented X3 - Routine Psychiatric Exam Present: cooperative Assessment and Plan - Assessment (1) Ascites due to alcoholic cirrhosis Code(s): K70.31 - Alcoholic cirrhosis of liver with ascites Status: Acute Plan: Improving cont to diuresis, Lasix 20 mg bid has paracentesis yesterday 4.5 liters removed Monitor B/P. (2) Acute hyponatremia Code(s): E87.1 - Hypo-osmolality and hyponatremia Status: Acute Plan: Improving 129 today (3) ALC (alcoholic liver cirrhosis) Code(s): K70.30 - Alcoholic cirrhosis of liver without ascites Status: Acute Plan: refrain from ETOH GI pending (4) Hypokalemia Code(s): E87.6 - Hypokalemia Status: Acute Plan: 3.1 today will Replace
--- NOTE | 2019-01-02 14:36 | P.CONGI ---
History of Present Illness Consult date: 01/02/19 Consult reason: Liver cirrhosis Chief complaint: Hospital Acquired Pneumonia History of Present Illness: Patient is a pleasant 53-year-old female with past medical history of EtOH abuse. Surgical history significant for cholecystectomy and hand surgery. The diagnosis with alcoholic cirrhosis 1 month ago. She was sent to [place] emergency room by her PCP for evaluation of bilateral lower extremity edema and abdominal distention. Patient denies fever or chills. Upon consultation patient states he has been experiencing dull aching abdominal discomfort. She reports post paracentesis with the removal of 4.4 L, abdominal distention and discomfort decreased and now rates same at 2 out of 10. Patient denies current alcohol use and states that she stopped drinking 2 weeks ago. She denies tobacco products. Patient states she recently moved from [place]. She is not undergoing any treatment for liver dysfunction. States she only takes Prilosec and a multivitamin daily. Patient reports 1 week onset of abdominal distention with scleral icterus and lower extremity swelling. She also states that she has occasional blood-tinged bile reflux with frequent acid reflux symptoms while on Prilosec. States her last colonoscopy was done in 2018 along with an EGD. Reports that the EGD revealed gastritis with Carey's esophagus. She denies any abnormal findings noted on colonoscopy. Our service has been consulted to evaluate patient for liver cirrhosis. Review of Systems All other systems reviewed negative except as stated in HPI PMFSH - History History Provided By: Patient - Medical History Medical History: Medical History (Last Reviewed 12/28/18 @ 16:28 by Parris Keller MD) Alcohol abuse Jaundice - Surgical History Surgical History: Surgical History (Last Reviewed 12/28/18 @ 16:28 by Parris Keller MD) Hx of cholecystectomy Hx of hand surgery - Family History Family History: Family History (Last Reviewed 12/28/18 @ 16:28 by Parris Keller MD) Other Osteoarthritis - Tobacco History Second Hand Smoke Exposure: No Smoking Status: Never smoker - Alcohol History How Often Do You Have a Drink Containing Alcohol: 4 or more times a week - Substance Use History Substance History: No History of Abuse - Immunization History Tetanus Immunization: Unsure Medications and Allergies Active Medications: Active Medications Acetaminophen (Tylenol) 650 mg PO Q4H PRN PRN Reason: Temp > 100.4 Folic Acid (Folic Acid) 1 mg PO DAILY [facility] Last Admin: 01/02/19 09:00 Dose: 1 mg Furosemide (Lasix) 20 mg PO BID@0900,1800 [facility] Last Admin: 01/02/19 11:03 Dose: 20 mg Albumin Human (Flexbumin 25% Inj) 100 mls @ 60 mls/hr IV.SIG Q12H [facility] Last Admin: 01/02/19 11:02 Dose: Not Given Melatonin (Melatonin) 5 mg PO HS PRN PRN Reason: Insomnia Last Admin: 12/29/18 21:02 Dose: 5 mg Pantoprazole Sodium (Protonix) 20 mg PO DAILY [facility] Last Admin: 01/02/19 08:59 Dose: 20 mg Potassium Chloride (Klor-Con 10) 10 meq PO DAILY [facility] Last Admin: 01/02/19 14:27 Dose: 10 meq Thiamine HCl (Vitamin B1) 100 mg PO BID [facility] Last Admin: 01/02/19 09:00 Dose: 100 mg Allergies Allergy/AdvReac Type Severity Reaction Status Date / Time Opioids - Morphine Analogues AdvReac Vomiting Verified 12/17/18 09:29 Home Medications Medication Instructions Recorded Confirmed Type omeprazole magnesium [Prilosec OTC] 20 mg PO DAILY 12/17/18 12/28/18 History Exam Vital signs: Vital Signs 01/01/19 16:41 01/01/19 16:52 01/01/19 17:24 Temperature 98.1 F 98.0 F 97.6 F Pulse Rate 101 H 102 H 103 H Respiratory Rate 20 18 18 Blood Pressure 92/62 L 87/60 L 103/64 Pulse Oximetry 93 L 93 L 94 L 01/01/19 19:56 01/01/19 20:00 01/02/19 00:00 Temperature 98.0 F 98.9 F Pulse Rate 100 H 108 H 103 H Respiratory Rate 18 22 20 Blood Pressure 92/56 L 89/54 L Pulse Oximetry 93 L 94 L 97 01/02/19 04:00 01/02/19 07:39 01/02/19 07:40 Temperature 99.7 F H Pulse Rate 102 H 93 H Respiratory Rate 20 18 Blood Pressure 91/59 L Pulse Oximetry 93 L 98 01/02/19 08:21 01/02/19 12:58 Temperature 99.0 F 98.9 F Pulse Rate 102 H 113 H Respiratory Rate 17 18 Blood Pressure 97/65 L 99/61 L Pulse Oximetry 95 90 L Intake & Output 01/01/19 01/02/19 01/02/19 18:59 06:59 18:59 Intake Total 1100 / 1100 100 / 100 Balance 1100 / 1100 100 / 100 Weight 62 kg Intake: IV 100 / 100 100 / 100 Flexbumin 25% Inj 100 ML @ 60 100 / 100 mls/hr IV.SIG Q12H [facility] Rx#: [id number] Magnesium Sulfate Inj 4 GM In 100 / 100 NS Inj 92 ML @ 25 mls/hr IV.SIG ONCE ONE Rx#:[id number] Oral 1000 / 1000 Other: # Voids 5 3 Date of Last Bowel Movement 12/31/18 12/31/18 - Constitutional chronically ill appearing, cooperative - Routine HEENT Exam Head: Present: normocephalic Eye: Present: conjunctival icterus ENT: Present: mucous membranes moist - Routine Neck Exam Present: supple, trachea midline - Routine Respiratory Exam Present: CTA bilaterally. Absent: accessory muscle use - Routine Cardiovascular Exam Present: RRR - Routine Abdominal Exam Present: soft, normoactive bowel sounds, distended. Absent: tenderness, guarding, firm - Routine Extremities Exam Present: edema, pulses intact - Routine Skin Exam Present: dry, warm, jaundice - Routine Neurological Exam Present: alert, oriented X3 Results - Labs CBC & Chem 7: 12/29/18 06:30 01/02/19 06:50 Labs: Laboratory Results - last 24 hr 01/01/19 01/01/19 01/02/19 15:25 15:25 06:50 Sodium 129 L Potassium 3.3 L Chloride 97 L Carbon Dioxide 22.2 Anion Gap 10 BUN 4 L Creatinine 0.58 Estimated GFR Greater than 89 Random Glucose 95 Calcium 7.4 L* Calcium Adj for Albumin 9.1 Magnesium 2.2 D Total Bilirubin Direct Bilirubin Indirect Bilirubin AST ALT Alkaline Phosphatase Total Protein Albumin 1.9 L Peritoneal RBC 127 H Periton Nuc Cells 64 H Periton Neutrophils 19 Periton Lymphocytes 18 Peritoneal Monocytes 53 Peritoneal Eosinophils 1 Periton Histiocytes 9 Peritoneal Tot Protein 0.9 Peritoneal Albumin 0.3 Peritoneal LDH 35 01/02/19 06:50 Sodium Potassium Chloride Carbon Dioxide Anion Gap BUN Creatinine Estimated GFR Random Glucose Calcium Calcium Adj for Albumin Magnesium Total Bilirubin 7.3 H Direct Bilirubin 5.1 H Indirect Bilirubin 2.2 H AST 102 H ALT 8 L Alkaline Phosphatase 174 H Total Protein 6.5 D Albumin 1.9 L Peritoneal RBC Periton Nuc Cells Periton Neutrophils Periton Lymphocytes Peritoneal Monocytes Peritoneal Eosinophils Periton Histiocytes Peritoneal Tot Protein Peritoneal Albumin Peritoneal LDH - Imaging Impressions Paracentesis Ultrasound 01/01/19 00:00 CONCLUSION: 1. Uncomplicated paracentesis. Assessment and Plan (1) Liver cirrhosis Status: Acute Code(s): K74.60 - Unspecified cirrhosis of liver (2) ALC (alcoholic liver cirrhosis) Status: Acute Code(s): K70.30 - Alcoholic cirrhosis of liver without ascites - Plan Patient is a pleasant 53-year-old female with past medical history of EtOH abuse. Surgical history significant for cholecystectomy and hand surgery. The diagnosis with alcoholic cirrhosis 1 month ago. She was sent to [place] emergency room by her PCP for evaluation of bilateral lower extremity edema and abdominal distention. Patient denies fever or chills. Upon consultation patient states he has been experiencing dull aching abdominal discomfort. She reports post paracentesis with the removal of 4.4 L, abdominal distention and discomfort decreased and now rates same at 2 out of 10. Patient denies current alcohol use and states that she stopped drinking 2 weeks ago. She denies tobacco products. Patient states she recently moved from [place]. She is not undergoing any treatment for liver dysfunction. States she only takes Prilosec and a multivitamin daily. Patient reports 1 week onset of abdominal distention with scleral icterus and lower extremity swelling. She also states that she has occasional blood-tinged bile reflux with frequent acid reflux symptoms while on Prilosec. States her last colonoscopy was done in 2018 along with an EGD. Reports that the EGD revealed gastritis with Carey's esophagus. She denies any abnormal findings noted on colonoscopy. Our service has been consulted to evaluate patient for liver cirrhosis. Liver cirrhosis EtOH abuse Ascites History of gastritis History of Carey's esophagus Plan Diet as tolerated Avoid hepatotoxins Lasix 40 daily Spironolactone 100 mg p.o. daily Await peritoneal fluid studies N.p.o. after midnight Obtain consent for EGD Supportive care Further recommendations to follow This patient has been seen by myself and Dr. Alexander and this note is written on his behalf - Attending Attestation Dr. Alexander
--- NOTE | 2019-01-02 19:43 | P.PNPL ---
Subjective Interval history: 53 YOWF with Ascitis, anasarca Had paracentesis 4.5 L fluid removed has Cough no Sp Seen by GI Physical Exam Vital signs: Vital Signs 01/01/19 19:56 01/01/19 20:00 01/02/19 00:00 Temperature 98.0 F 98.9 F Pulse Rate 100 H 108 H 103 H Respiratory Rate 18 22 20 Blood Pressure 92/56 L 89/54 L Pulse Oximetry 93 L 94 L 97 01/02/19 04:00 01/02/19 07:39 01/02/19 07:40 Temperature 99.7 F H Pulse Rate 102 H 93 H Respiratory Rate 20 18 Blood Pressure 91/59 L Pulse Oximetry 93 L 98 01/02/19 08:21 01/02/19 12:58 01/02/19 17:18 Temperature 99.0 F 98.9 F 97.8 F Pulse Rate 102 H 113 H 100 H Respiratory Rate 17 18 18 Blood Pressure 97/65 L 99/61 L 108/67 Pulse Oximetry 95 90 L 95 Intake & Output 01/02/19 01/02/19 01/03/19 06:59 18:59 06:59 Intake Total 100 / 100 Balance 100 / 100 Weight 62 kg Intake: IV 100 / 100 Magnesium Sulfate Inj 4 GM In 100 / 100 NS Inj 92 ML @ 25 mls/hr IV.SIG ONCE ONE Rx#:[id number] Other: # Voids 3 2 Date of Last Bowel Movement 12/31/18 GENERAL: MBMn NAD SKIN: Warm and dry. HEAD: Normocephalic. EYES: No scleral icterus. No injection or drainage. NECK: Supple, trachea midline. No JVD or lymphadenopathy. CARDIOVASCULAR: Regular rate and rhythm without murmurs, gallops, or rubs. RESPIRATORY: Breath sounds equal bilaterally. No accessory muscle use. GASTROINTESTINAL: Abdomen soft, non-tender, nondistended. MUSCULOSKELETAL: No cyanosis, or edema. BACK: Nontender without obvious deformity. No CVA tenderness. Assessment and Plan - Plan IMPRESSION: 1. Anasarca. 2. Ascites. 3. Mild atelectasis. 4. Possible hepatitis/cirrhosis. 5. Hyponatremia. 6. Alcohlic cirrhosis PLAN: Diurease with Lasix IV Albumin monitor lytes Stable on RA Encourage to ambulate
[2019-01-02] MEDS: Melatonin 5 MG Tablet PO PRN (21:41)
[2019-01-02 21:44] LABS: % Iron Saturation 75.2 % (20-50); Alpha Fetoprotein Tumor Marker 3.8 ng/mL (0.5-8.0)
[2019-01-02 22:56] LABS: Hepatitis A IgM Antibody Nonreactive (Nonreactive); Hepatitits B Surface Antigen Nonreactive (Nonreactive)
[2019-01-03] MEDS ORDERED: Chlorhexidine Gluconate 2% 1 Pack (2 Cloths) TOPICAL ONE (04:21)
[2019-01-03] MEDS ORDERED: Sodium Chlor 0.9% Inj 500 ML IV.SIG SCH (05:00)
[2019-01-03] MEDS: Folic Acid 1 MG Tablet PO SCH (08:33)
[2019-01-03] MEDS: Pantoprazole Sodium 20 MG DR Tablet PO SCH (08:33)
[2019-01-03] MEDS: Furosemide 20 MG Tablet PO SCH ×2 (08:33→17:05)
[2019-01-03 08:38] LABS: Anion Gap 10 meq/L (5-15); Blood Urea Nitrogen 4 mg/dL (7-18); Calcium 7.7 mg/dL (8.5-10.1); Carbon Dioxide 20.8 meq/L (21.0-32.0); Chloride 98 meq/L (98-107); Glomerular Filtration Rate Greater Than 89 mL/min (>89); Glucose,Random 83 mg/dL (74-106); Potassium 3.3 meq/L (3.5-5.1); Sodium 129 meq/L (136-145)
[2019-01-03] MEDS: Albumin Human 25% Inj 100 ML IV.SIG SCH (11:30)
[2019-01-03] MEDS ORDERED: Lidocaine PF 1% Inj 5 ML Syringe OTHER ONE (11:46)
--- NOTE | 2019-01-03 12:18 | GIPROC ---
[facility] [address] [facility]. [facility], [address] EGD PROCEDURE REPORT EXAM DATE: 01/03/2019 PATIENT NAME: Patrizia Cage I MR #: [id number] BIRTHDATE: 1965 ATTENDING: Abhijeet Alexander MD ORDER #: [id number] OFFENDER EMPLOYMENT SPECIALIST: Josh Cox and Jaida Whitney STATUS: inpatient INDICATIONS: The patient is a 53 yr old female here for an EGD due to Cirrhosis PROCEDURE PERFORMED: EGD, diagnostic MEDICATIONS: Per Anesthesia and None. TOPICAL ANESTHETIC: none CONSENT: The patient understands the risks and benefits of the procedure and understands that these risks include, but are not limited to: sedation, allergic reaction, infection, perforation and/or bleeding. Alternative means of evaluation and treatment include, among others: physical exam, x-rays, and/or surgical intervention. The patient elects to proceed with this endoscopic procedure. medical equipment was checked for proper function. Hand hygiene and appropriate measures for infection prevention was taken. After the risks, benefits and alternatives of the procedure were thoroughly explained, Informed consent was verified, confirmed and timeout was successfully executed by the treatment team. The patient was anesthetized with topical anesthesia and the Pentax EG-[id number] endoscope was introduced through the mouth and advanced to the second portion of the duodenum. Retroflexed views revealed a hiatal hernia The gastroscope was then slowly withdrawn and removed. ESOPHAGUS: There were 2 columns of small varices in the distal esophagus. There was evidence of prior scarring. STOMACH: Moderate portal hypertensive gastropathy was found in the entire examined stomach. DUODENUM: The duodenal mucosa appeared normal in the entire duodenum. ADVERSE EVENTS: There were no complications. IMPRESSIONS: 1. Grd I esophageal varices 2.Portal hypertensive gastropathy was found in the entire examined stomach 2. Normal duodenal mucosa in the entire duodenum 3. Retroflexed views revealed a hiatal hernia RECOMMENDATIONS: Add Nadolol to tx PATIENT CONDITION: stable DISPOSITION: Inpatient REPEAT EXAM: Return 1 year EGD Abhijeet Alexander MD eSigned: Abhijeet Alexander MD 01/03/2019 12:17 PM cc: PATIENT NAME: Nohelia Cagecelemanuel Snow MR#: [id number]
[2019-01-03 15:59] VITALS: BP 94/59; PULSE 95; RESP 18; TEMP 98; O2SAT 96
--- NOTE | 2019-01-03 16:11 | P.DS ---
Date of admission: 12/28/18 18:02 Primary care physician: Pj Bowman DO Brief History from admission: This patient is a 53 y/o Female with an extensive hx of etoh abuse. She was recently diagnosed with alcoholic cirrhosis and treated for hypernatremia likely 2/2 fluid overload and then discharged with a na level of around 130. Patient followed up with Dr. Bowman who evaluated the patient in his clinic and sent her to the ER because of b/l lower ext edema and worsening abdominal distention. She says that she feels approximately 20lbs heavier than her last admission and was feeling uncomfortable. She denies any fevers or chills. She admits to abdominal discomfort but denies any pain or tenderness to palpation. In the ER her Na level was low around 119. Her last alcoholic drink was approximately two weeks ago. DS: Diagnosis - Discharge Diagnosis (1) Ascites due to alcoholic cirrhosis Status: Acute (2) Acute hyponatremia Status: Acute (3) ALC (alcoholic liver cirrhosis) Status: Acute (4) Hypokalemia Status: Acute DS: Summary Hospital Course: 55 year old female presented for approximately 20lbs weight gain in last 10 days. She was recently diagnosed with cirrhosis. She was treated with diuretics , Lasix and Aldactone. She had paracentesis on 01/01 for comfort with 4.5 liters being removed. Gi consulted she had EGD on 01/03/19 showing grade 1 varices, with Recommendation to start Nadolol. She will be dc home and will follow up with GI in 4 weeks. - Time Spent with Patient Total time spent providing and/or coordinating discharge services: 20 Less than 30 minutes - Quality: AMI Clinical Trial Participant: No - Quality: Stroke Symptom Onset Unknown: No - Quality: VTE Is this test being ordered to rule out VTE?: No Exam Vital signs: Vital Signs 01/02/19 17:18 01/02/19 20:00 01/03/19 00:00 Temperature 97.8 F 98.7 F 98.5 F Pulse Rate 100 H 98 H 88 Respiratory Rate 18 17 17 Blood Pressure 108/67 92/62 L 92/55 L Pulse Oximetry 95 93 L 93 L 01/03/19 08:00 01/03/19 12:17 01/03/19 12:20 Temperature 98.5 F 97.9 F 97.9 F Pulse Rate 86 84 84 Respiratory Rate 18 20 20 Blood Pressure 84/54 L 93/63 L 93/63 L Pulse Oximetry 93 L 97 97 01/03/19 12:30 01/03/19 15:57 Temperature 98.0 F Pulse Rate 85 95 H Respiratory Rate 18 Blood Pressure 91/58 L 94/59 L Pulse Oximetry 97 96 Intake & Output 01/02/19 01/03/19 01/03/19 18:59 06:59 18:59 Intake Total 240 / 240 Balance 240 / 240 Weight 62.1 kg Intake: Oral 240 / 240 Other: # Voids 2 4 - Constitutional no acute distress - Routine HEENT Exam Eye: Present: PERRL ENT: Present: mucous membranes moist - Routine Neck Exam Present: supple - Routine Respiratory Exam Present: CTA bilaterally - Routine Cardiovascular Exam Present: S1, S2 - Routine Abdominal Exam Present: soft, normoactive bowel sounds, distended - Routine Extremities Exam Present: pulses intact - Routine Skin Exam Present: intact, dry, warm - Routine Neurological Exam Present: alert, oriented X3 Results Procedures completed during hospitalization: Paracentesis on 01/01/19 4.5 liter removed EGD 01/03/19 Labs on day of discharge: Labs from last 24 hours 01/03/19 01/02/19 01/02/19 06:53 20:51 20:51 Sodium 129 L Potassium 3.3 L Chloride 98 Carbon Dioxide 20.8 L Anion Gap 10 BUN 4 L Creatinine 0.59 Estimated GFR Greater than 89 Random Glucose 83 Calcium 7.7 L Iron TIBC % Saturation Ferritin Ammonia 42 H Ceruloplasmin Tumor Marker AFP Rheumatoid Factor JUSTUS Screen JUSTUS Pattern SS-A Antibody SS-B Antibody Sm (Mason) Antibody SM/HONEY PRODUCER Antibody Scl-70 Antibody Anti-ds DNA (Crithidia) Mitochondria M2 IgG Ab Hepatitis A IgM Ab Nonreactive Hep Bs Antigen Nonreactive Hep B Core IgM Ab Nonreactive Hep C IgG Ab Nonreactive 01/02/19 01/02/19 20:51 20:51 Sodium Potassium Chloride Carbon Dioxide Anion Gap BUN Creatinine Estimated GFR Random Glucose Calcium Iron 60 TIBC 80 L % Saturation 75.2 H Ferritin 511 H Ammonia Ceruloplasmin Pending Tumor Marker AFP 3.8 Rheumatoid Factor Pending JUSTUS Screen Pending JUSTUS Pattern Pending SS-A Antibody Pending SS-B Antibody Pending Sm (Mason) Antibody Pending SM/HONEY PRODUCER Antibody Pending Scl-70 Antibody Pending Anti-ds DNA (Crithidia) Pending Mitochondria M2 IgG Ab Pending Hepatitis A IgM Ab Hep Bs Antigen Hep B Core IgM Ab Hep C IgG Ab Preliminary micro results at discharge 01/01/19 15:25 Body Fluid Culture - Preliminary Fluid - Peritoneal fluid No growth in 48 hours - Impressions ITS Impressions Chest X-Ray 12/28/18 15:24 CONCLUSION: 1. Right basilar atelectasis/infiltrate. 2. Retrocardiac density likely hiatal hernia. Abdomen Ultrasound 12/31/18 00:00 CONCLUSION: 1. Moderate amount of ascites is present. Paracentesis Ultrasound 01/01/19 00:00 CONCLUSION: 1. Uncomplicated paracentesis. Discharge Plan - Discharge Disposition Patient Disposition: Discharge Home - Discharge Condition Condition: Stable - Discharge Order Discharge Orders: Discharge Order (Routine); Ordered 01/03/19 Ordered By: Marian Vargas ED Use Only Admit Order (Routine); Ordered 12/28/18 Ordered By: Parris Keller - Discharge Details Anticipated Discharge Date: 01/03/19 - Physicians Team Primary Care Provider: Pj Bowman Attending Provider: Pj Bowman Other Providers: Isai Page MD ; Thor Monge MD
[2019-01-03] MEDS ORDERED: Escitalopram 10 MG Tablet PO SCH (21:00)
[2019-01-04] MEDS ORDERED: Nadolol 40 MG Tablet PO SCH (09:00)
[2019-01-04 19:52] LABS: Ceruloplasmin 25 mg/dL (18-53)
[2019-01-06 07:51] LABS: DS DNA Ab (Crithidia) NEGATIVE (NEGATIVE)
== END 2019-01-03 18:12 | disposition home or self-care (01) | DRG 433 ==
LOC: NEPE 14:04 → NEDA 18:02 → N07 20:00
PROVIDERS: ADMIT Family Medicine; ATTEND Family Medicine
PROC: PANENDO (2019-01-03 11:46)
CPT/HCPCS: 49083; 71010; 71045; 76705; 80048; 80053; 80074; 80076; 82040; 82042; 82105; 82140; 82390; 82728; 83520; 83540; 83550; 83615; 83735; 83880; 84155; 84157; 84484; 85025; 85610; 86038; 86039; 86225; 86235; 86255; 86256; 86431; 87040; 87070; 87205; 89051; 90765; 93005; 94640; 94645; 94664; 94665; 96365; 99285; C1729; J0456; J1940; J2543; J2704; J3370; J3475; J7040; J7050; P9047